=== PATIENT | female | born 1960 | race Caucasian/White ===

== ENCOUNTER 2019-07-01 12:36 | Emergency (ER) | payer OTHER ==
[~2019-07-01] VITALS: Ht 167.6 cm; Wt 78.5 kg
[2019-07-01 12:57] VITALS: Ht 167.6 cm; Wt 78.5 kg
[2019-07-01 15:51] VITALS: BP 140/80
== END 2019-07-01 15:51 | disposition home or self-care (01) ==
LOC: ED 12:36
DX: L03.011 Cellulitis of right finger (principal)